=== PATIENT | male | born 2000 | race Caucasian/White ===

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

== ENCOUNTER 2020-08-25 12:24 | Emergency (ER) | payer OTHER ==
[~2020-08-25] VITALS: Ht 172.7 cm; Wt 63.6 kg
[2020-08-25 12:54] LABS: HEMATOCRIT 45.4 % (42.0-52.0); MEAN CORPUSCULAR VOLUME 93.8 fl (80.0-96.0); PLATELET COUNT, AUTOMATED 279 10^3/uL (150-450); RED BLOOD COUNT 4.84 10^6/uL (4.30-6.10); WHITE BLOOD COUNT 7.5 10^3/uL (4.0-10.0)
[2020-08-25 13:28] LABS: ACETAMINOPHEN LEVEL < 2.0 UG/ML (10.0-30.0); ALBUMIN 4.4 GM/DL (3.2-5.2); ALT/SGPT 35 U/L (12-78); BILIRUBIN,DIRECT 0.1 MG/DL (0.0-0.2); BILIRUBIN,TOTAL 0.4 MG/DL (0.2-1.0); BLOOD UREA NITROGEN 16 MG/DL (7-18); CALCIUM LEVEL 9.6 MG/DL (8.5-10.1); CARBON DIOXIDE LEVEL 26 MEQ/L (21-32); CHLORIDE LEVEL 107 MEQ/L (98-107); CREATININE FOR GFR 0.94 MG/DL (0.70-1.30); ETHYL ALCOHOL (ETHANOL) < 0.003 % (0.000-0.010); GLUCOSE, FASTING 113 MG/DL (70-100); POTASSIUM SERUM 4.2 MEQ/L (3.5-5.1); SALICYLATE LEVEL 2.3 MG/DL (5.0-30.0); SODIUM LEVEL 141 MEQ/L (136-145); THYROID STIMULATING HORMONE 0.974 uIU/ML (0.463-3.98)
[2020-08-25] MEDS ORDERED: METH36TA5 PO (13:55)
[2020-08-25] MEDS ORDERED: CLON-412 PO (13:55)
[2020-08-25] MEDS ORDERED: ZOLO100T PO (13:55)
[2020-08-25 14:45] LABS: AMPHETAMINES LEVEL URINE NEGATIVE (NEGATIVE); BARBITURATES URINE NEGATIVE (NEGATIVE); BENZODIAZEPINES URINE NEGATIVE (NEGATIVE); CANNABINOIDS URINE POSITIVE (NEGATIVE); COCAINE METABOLITE URINE NEGATIVE (NEGATIVE); METHADONE URINE NEGATIVE (NEGATIVE); OPIATES URINE NEGATIVE (NEGATIVE); PHENCYCLIDINE URINE NEGATIVE (NEGATIVE)
[2020-08-25 16:35] VITALS: BP 142/85
== END 2020-08-25 17:11 | disposition home or self-care (01) ==
LOC: M ED 12:24
DX: S50.812A Abrasion of left forearm, initial encounter (principal); X78.9XXA Intentional self-harm by unspecified sharp object, initial encounter; Y92.9 Unspecified place or not applicable; Y93.9 Activity, unspecified; Y99.9 Unspecified external cause status; F32.9 Major depressive disorder, single episode, unspecified; F17.200 Nicotine dependence, unspecified, uncomplicated; Z79.899 Other long term (current) drug therapy; Z91.5 Personal history of self-harm

== ENCOUNTER 2021-07-21 23:10 | Emergency (ER) | payer OTHER, SELFPAY ==
[~2021-07-21] VITALS: Ht 165.1 cm; Wt 63.6 kg
[~2021-07-21 23:10] MED LIST changes: +CLON-412 PO; +METH36TA5 PO; +ZOLO100T PO
[2021-07-21] MEDS ORDERED: NS 1,000 ML IV ONE (23:30)
[2021-07-21 23:51] LABS: VENOUS BASE EXCESS -0.5 (-2.0-2.0); VENOUS HCO3 18.2 MEQ/L (23.0-27.0); VENOUS O2 SATURATION 89.7 % (60.0-80.0); VENOUS PARTIAL PRESSURE CO2 19.6 mmHg (38.0-50.0); VENOUS PARTIAL PRESSURE O2 45.8 mmHg (30.0-50.0); VENOUS PH 7.586 UNITS (7.330-7.430); VENOUS STANDARD HCO3 23.8 MEQ/L; VENOUS TOTAL CO2 18.8 MEQ/L (24.0-28.0)
[2021-07-22] MEDS ORDERED: ONDANSETRON 4MG/2ML VIAL IV ONE (00:20)
[2021-07-22] MEDS ORDERED: METOCLOPRAMIDE INJ 10MG/2ML VIAL (J2765 PER 1) IV ONE (00:25)
[2021-07-22 00:33] LABS: ALBUMIN 5.2 GM/DL (3.2-5.2); ALT/SGPT 34 U/L (12-78); BILIRUBIN,DIRECT 0.3 MG/DL (0.0-0.2); BILIRUBIN,TOTAL 0.9 MG/DL (0.2-1.0); BLOOD UREA NITROGEN 25 MG/DL (7-18); CARBON DIOXIDE LEVEL 16 MEQ/L (21-32); CHLORIDE LEVEL 107 MEQ/L (98-107); CREATININE FOR GFR 1.15 MG/DL (0.70-1.30); ETHYL ALCOHOL (ETHANOL) < 0.003 % (0.000-0.010); GLOMERULAR FILTRATION RATE > 60.0 (>60); GLUCOSE, FASTING 116 MG/DL (70-100); POTASSIUM SERUM 3.4 MEQ/L (3.5-5.1); SALICYLATE LEVEL < 1.7 MG/DL (5.0-30.0); SODIUM LEVEL 139 MEQ/L (136-145); THYROID STIMULATING HORMONE 0.652 uIU/ML (0.358-3.740); TOTAL PROTEIN 8.4 GM/DL (6.4-8.2)
[2021-07-22 00:36] LABS: BASO % 0.2 % (0.0-1.0); EOS # 0.4 10^3/uL (0.0-0.5); EOS % 2.3 % (0.0-3.0); HEMATOCRIT 46.1 % (42.0-52.0); HEMOGLOBIN 16.3 g/dl (13.5-17.5); LYMPH # 1.7 10^3/uL (1.5-5.0); MEAN CORPUSCULAR HEMOGLOBIN 31.2 pg (27.0-33.0); MEAN CORPUSCULAR HGB CONC 35.4 g/dl (32.0-36.5); MEAN CORPUSCULAR VOLUME 88.1 fl (80.0-96.0); MONO % 5.6 % (2.0-8.0); NEUTROPHILS # 15.3 10^3/uL (1.5-8.5); NEUTROPHILS % 82.4 % (36.0-66.0); PLATELET COUNT, AUTOMATED 361 10^3/uL (150-450); RED BLOOD COUNT 5.23 10^6/uL (4.30-6.10); WHITE BLOOD COUNT 18.5 10^3/uL (4.0-10.0)
[2021-07-22] MEDS ORDERED: LORazepam 2 MG/ML VIAL IV STA (00:48)
[2021-07-22] MEDS ORDERED: NS 1,910 ML in IV 1 EA IV ONE (00:50)
[2021-07-22 02:07] LABS: OSMOLALITY SERUM 290 MOSM/KG (275-295)
[2021-07-22 02:20] LABS: ACETAMINOPHEN LEVEL < 2.0 UG/ML (10.0-30.0)
[2021-07-22 04:18] LABS: BASO % 0.2 % (0.0-1.0); EOS % 0.2 % (0.0-3.0); HEMATOCRIT 40.6 % (42.0-52.0); LYMPH # 0.5 10^3/uL (1.5-5.0); LYMPH % 3.5 % (24.0-44.0); MEAN CORPUSCULAR HEMOGLOBIN 31.6 pg (27.0-33.0); MEAN CORPUSCULAR HGB CONC 34.2 g/dl (32.0-36.5); MEAN CORPUSCULAR VOLUME 92.3 fl (80.0-96.0); MONO # 0.5 10^3/uL (0.0-0.8); MONO % 3.7 % (2.0-8.0); NEUTROPHILS # 12.2 10^3/uL (1.5-8.5); NEUTROPHILS % 91.8 % (36.0-66.0); WHITE BLOOD COUNT 13.3 10^3/uL (4.0-10.0)
[2021-07-22 04:29] LABS: HEMOGLOBIN 13.9 g/dl (13.5-17.5)
[2021-07-22 04:30] LABS: PLATELET COUNT, AUTOMATED 260 10^3/uL (150-450)
[2021-07-22] MEDS ORDERED: PROMETHAZINE 25MG/ML 1ML VIAL IV ONE (05:00)
[2021-07-22 05:04] LABS: AMPHETAMINES LEVEL URINE NEGATIVE (NEGATIVE); BARBITURATES URINE NEGATIVE (NEGATIVE); BENZODIAZEPINES URINE NEGATIVE (NEGATIVE); CANNABINOIDS URINE POSITIVE (NEGATIVE); COCAINE METABOLITE URINE NEGATIVE (NEGATIVE); METHADONE URINE NEGATIVE (NEGATIVE); OPIATES URINE NEGATIVE (NEGATIVE); PHENCYCLIDINE URINE NEGATIVE (NEGATIVE)
[2021-07-22] MEDS ORDERED: HALOPERIDOL 5MG/ML VIAL (J1630 PER 1) IV ONE (05:35)
[2021-07-22 12:27] VITALS: BP 120/68
== END 2021-07-22 12:29 | disposition home or self-care (01) ==
LOC: M ED 23:10
DX: E86.0 Dehydration (principal); F15.229 Other stimulant dependence with intoxication, unspecified; Z77.098 Contact with and (suspected) exposure to other hazardous, chiefly nonmedicinal, chemicals
CPT/HCPCS: 70450; 71045; 80048; 80076; 80143; 80307; 81001; 82077; 82803; 83605; 83930; 84443; 85025; 93005; 93041; 94760; 96361; 96374; 96375; 99285; J2060; J2550; J2765

== ENCOUNTER → 2022-01-18 | Outpatient (REF) | payer MEDICAID, OTHER | LOC: M LAB REF 17:07 | PROVIDERS: ATTEND Family Medicine Addiction Medicine | DX: R39.9 Unspecified symptoms and signs involving the genitourinary system (principal) ==

== ENCOUNTER → 2022-06-21 | Outpatient (REF) | payer MEDICAID ==
[2022-06-22 14:30] LABS: GC DNA AMPLIFICATION NEGATIVE (NEGATIVE)
== END ==
LOC: M LAB REF 12:18
PROVIDERS: ATTEND Family Medicine Addiction Medicine
DX: R36.9 Urethral discharge, unspecified (principal)

== ENCOUNTER 2022-12-14 19:15 | Emergency (ER) | payer MEDICAID ==
[~2022-12-14] VITALS: Ht 172.7 cm; Wt 72.9 kg
[2022-12-14 21:44] LABS: GC DNA AMPLIFICATION NEGATIVE (NEGATIVE)
[2022-12-14 23:32] VITALS: BP 126/84; TEMP 97.8; O2SAT 98
== END 2022-12-14 23:37 | disposition home or self-care (01) ==
LOC: M ED 19:15
DX: R30.0 Dysuria (principal); N48.29 Other inflammatory disorders of penis; Z79.899 Other long term (current) drug therapy

== ENCOUNTER 2024-06-14 12:14 | Emergency (ER) | payer MEDICAID, SELFPAY ==
[~2024-06-14] VITALS: Ht 172.7 cm; Wt 67.1 kg
[~2024-06-14 12:14] MED LIST changes: +METH36TA13 PO; -METH36TA5 PO
[2024-06-14 14:16] LABS: BASO % 0.3 % (0.0-1.0); EOS # 0.1 10^3/uL (0.0-0.5); EOS % 1.1 % (0.0-3.0); HEMATOCRIT 42.7 % (42.0-52.0); HEMOGLOBIN 14.7 g/dl (13.5-17.5); LYMPH # 1.8 10^3/uL (1.5-5.0); MEAN CORPUSCULAR HGB CONC 34.4 g/dl (32.0-36.5); MEAN CORPUSCULAR VOLUME 90.1 fl (80.0-96.0); MONO # 0.5 10^3/uL (0.0-0.8); MONO % 6.5 % (2.0-8.0); NEUTROPHILS % 67.8 % (36.0-66.0); PLATELET COUNT, AUTOMATED 293 10^3/uL (150-450); RED BLOOD COUNT 4.74 10^6/uL (4.30-6.10); WHITE BLOOD COUNT 7.4 10^3/uL (4.0-10.0)
[2024-06-14 14:32] LABS: D-DIMER QUANT < 0.27 ug/mL (<0.5); INR 1.04; PARTIAL THROMBOPLASTIN TIME 28.6 SECONDS (24.8-34.2); PROTHROMBIN TIME 13.9 SECONDS (12.5-14.5)
[2024-06-14 14:45] LABS: LIPASE 45 U/L (12-53)
[2024-06-14 14:47] LABS: ALBUMIN 4.5 G/DL (3.2-5.2); ALKALINE PHOSPHATASE 69 U/L (40-129); ALT/SGPT 18 U/L (7.0-40); AST/SGOT 9 U/L (<34); BILIRUBIN,DIRECT 0.3 MG/DL (<0.4); BILIRUBIN,TOTAL 0.9 MG/DL (0.3-1.2); BLOOD UREA NITROGEN 12 MG/DL (9-23); CALCIUM LEVEL 9.5 MG/DL (8.5-10.1); CARBON DIOXIDE LEVEL 26 MMOL/L (20-31); CHLORIDE LEVEL 109 MMOL/L (98-107); CREATININE FOR GFR 0.89 MG/DL (0.70-1.30); GLOMERULAR FILTRATION RATE > 90.0 (>60); GLUCOSE, FASTING 91 MG/DL (60-100); POTASSIUM SERUM 4.5 MMOL/L (3.5-5.1); SODIUM LEVEL 142 MMOL/L (136-145); TOTAL PROTEIN 7.1 G/DL (5.7-8.2)
[2024-06-14] MEDS ORDERED: CARA1TAB6 PO (15:26)
[2024-06-14] MEDS ORDERED: OMEP40CA4 PO (15:26)
[2024-06-14 15:38] VITALS: BP 120/69; TEMP 96.6; O2SAT 99
== END 2024-06-14 15:39 | disposition home or self-care (01) ==
LOC: EDBD 12:14 → M ED 12:14
DX: R11.2 Nausea with vomiting, unspecified (principal); R19.7 Diarrhea, unspecified; F17.210 Nicotine dependence, cigarettes, uncomplicated; F12.10 Cannabis abuse, uncomplicated; F90.9 Attention-deficit hyperactivity disorder, unspecified type; Z79.899 Other long term (current) drug therapy

== ENCOUNTER 2024-07-07 00:08 | Emergency (ER) | payer SELFPAY ==
[~2024-07-07] VITALS: Ht 172.7 cm; Wt 68.6 kg
[~2024-07-07 00:08] MED LIST changes: +CARA1TAB6 PO; +OMEP40CA4 PO
[2024-07-07] MEDS: PANTOPRAZOLE 40MG VIAL IV ONE (00:36)
[2024-07-07 00:37] VITALS: BP 143/103
[2024-07-07] MEDS: NS (Normal Saline) 0.9% 1,000 ML IV ONE (00:37)
[2024-07-07] MEDS: cloNIDine 0.2 MG TAB PO ONE (00:37)
[2024-07-07 00:59] LABS: BASO % 0.7 % (0.0-1.0); EOS # 0.2 10^3/uL (0.0-0.5); EOS % 2.5 % (0.0-3.0); HEMOGLOBIN 14.3 g/dl (13.5-17.5); LYMPH # 2.3 10^3/uL (1.5-5.0); LYMPH % 37.5 % (24.0-44.0); MEAN CORPUSCULAR HEMOGLOBIN 31.2 pg (27.0-33.0); MEAN CORPUSCULAR VOLUME 91.7 fl (80.0-96.0); MONO # 0.6 10^3/uL (0.0-0.8); MONO % 10.6 % (2.0-8.0); NEUTROPHILS # 2.9 10^3/uL (1.5-8.5); NEUTROPHILS % 48.4 % (36.0-66.0); PLATELET COUNT, AUTOMATED 266 10^3/uL (150-450); RED BLOOD COUNT 4.58 10^6/uL (4.30-6.10)
[2024-07-07 01:05] LABS: BLOOD UREA NITROGEN 15 MG/DL (9-23); CALCIUM LEVEL 8.9 MG/DL (8.5-10.1); CARBON DIOXIDE LEVEL 28 MMOL/L (20-31); CHLORIDE LEVEL 105 MMOL/L (98-107); CREATININE FOR GFR 0.81 MG/DL (0.70-1.30); GLOMERULAR FILTRATION RATE > 90.0 (>60); GLUCOSE, FASTING 94 MG/DL (60-100); POTASSIUM SERUM 3.6 MMOL/L (3.5-5.1); SODIUM LEVEL 143 MMOL/L (136-145)
[2024-07-07] MEDS ORDERED: PROT1TAB2 PO (01:37)
[2024-07-07 01:50] VITALS: BP 122/59; TEMP 98.2; O2SAT 97
== END 2024-07-07 01:50 | disposition home or self-care (01) ==
LOC: M ED 00:08
DX: K92.0 Hematemesis (principal); K29.71 Gastritis, unspecified, with bleeding; K21.9 Gastro-esophageal reflux disease without esophagitis; F90.9 Attention-deficit hyperactivity disorder, unspecified type; F10.10 Alcohol abuse, uncomplicated; Z79.899 Other long term (current) drug therapy
CPT/HCPCS: 71046; 80048; 85025; 86850; 86900; 86901; 96361; 96374; 99284; J2470

== ENCOUNTER 2024-10-04 13:14 | Emergency (ER) | payer SELFPAY ==
[~2024-10-04] VITALS: Ht 172.7 cm; Wt 75.5 kg
[~2024-10-04 13:14] MED LIST changes: +PROT1TAB2 PO; +SUCR1TA PO
[2024-10-04 16:56] VITALS: BP 132/80; TEMP 98; O2SAT 96
== END 2024-10-04 16:58 | disposition home or self-care (01) ==
LOC: M ED 13:14
DX: S52.135A Nondisplaced fracture of neck of left radius, initial encounter for closed fracture (principal); Y92.410 Unspecified street and highway as the place of occurrence of the external cause; Y93.9 Activity, unspecified; Y99.9 Unspecified external cause status; V00.131A Fall from skateboard, initial encounter; Z79.899 Other long term (current) drug therapy

== ENCOUNTER → 2024-11-18 | Outpatient (CLI) | payer SELFPAY | LOC: M SOG 07:21 | PROVIDERS: ATTEND Physician Assistant | DX: M25.522 Pain in left elbow (principal) ==